=== PATIENT | male | born 1985 | race Caucasian/White ===

== ENCOUNTER 2017-05-07 16:54 | Emergency (ER) | payer SELFPAY ==
[2017-05-07 17:33] LABS: Hematocrit 45.4 % (42.0-52.0); Hemoglobin 15.9 gm/dL (13.5-18.0); Mean Cell Volume 87.3 fl (78-100); Mean Corpuscular Hemoglobin 30.6 pg (27-31); Mean Platelet Volume 10.3 fl (6.0-9.5); Neutrophil # 4.1 K/mm3 (1.3-6.0); Neutrophil % 43.3 % (42-75.0); Platelet Count 213 K/mm3 (150-450); Red Cell Distribution Width 12.4 % (11.5-14.0); White Blood Count 9.4 K/mm3 (4.0-10.5)
[2017-05-07 17:38] LABS: Urine Bilirubin Negative (NEGATIVE); Urine Blood Negative /ul (NEGATIVE); Urine Ketone Negative (NEGATIVE); Urine Nitrite Negative (NEGATIVE); Urine Protein Negative (NEGATIVE); Urine Specific Gravity 1.015 SP.GR. (1.005-1.030); Urine Urobilinogen Normal (NORMAL)
[2017-05-07 17:47] LABS: Albumin * 4.3 gm/dl (3.4-5.0); Anion Gap 11.3 mmol/L (6.8-13.8); BUN/Creatinine Ratio 10.7 (9.0-21.6); Bilirubin, Total 0.7 mg/dL (0.0-1.1); Ca. Corrected For Albumin 8.7 mg/dL (8.4-10.2); Calcium * 9.3 mg/dL (7.9-10.9); Carbon Dioxide 31.4 mmol/L (24-32.6); Potassium 3.7 mmol/L (3.4-4.6); Total Protein 8.5 gm/dL (6.2-8.2)
[2017-05-07 17:55] VITALS: BP 137/79
[2017-05-07 17:57] LABS: Urine Appearance Slightly Cloudy; Urine Color Yellow
[2017-05-07 17:58] LABS: Urine Bacteria TRACE; Urine RBC None Seen /hpf (0-5); Urine WBC None Seen /hpf (0-5)
--- NOTE | 2017-05-07 17:59 | ERNOTE ---
Abdominal HPI - General Chief Complaint: Abdominal Pain Time Seen by Provider: 05/07/17 17:11 Source: patient Exam Limitations: no limitations - Immun/Allergies/Home Medications Immunizatons: IMMUNIZATION HX Immunizations Up to Date Yes History of Influenza Vaccine No Hx Pneumococcal Vaccination No Allergies/Adverse Reactions: Allergies bupropion HCl [From Wellbutrin] Allergy (Verified 05/07/17 17:03) Home Medications: HOME MEDICATIONS Ibuprofen [Motrin] 800 mg PO TID PRN #15 tablet 05/07/17 [Last Taken Unknown] - History of Present Illness Narrative: Patient has had abdominal pain off and on for 7 days. He denies any fevers chills nausea vomiting diarrhea or constipation. He that he has no primary care doctor and has not taking any medication for this condition. Review of Systems - Review of Systems Constitutional: Present: no symptoms reported EYE: Present: no symptoms reported ENT: Present: no symptoms reported Respiratory: Present: no symptoms reported Cardiology: Present: no symptoms reported Gastrointestinal/Abdominal: Present: See HPI Genitourinary: Present: no symptoms reported Musculoskeletal: Present: no symptoms reported Skin: Present: no symptoms reported - Patient's Past Medical History Patient History - Medical: Depression Patient History - Cardiac/Respiratory: No pertinent hx Patient History - Cancer: No Hx of Cancer Patient History - Surgical Procedures: T & A, Other Patient History - Other: Other - Family History Grandfather-Paternal Family History - Cardiac/Respiratory: Hypertension Grandmother-Maternal Family History - Medical: Diabetes Type 2 - Social History Living Situations: home Abuse History: No History of abuse Psych History: Hx of Depression Alcohol Use: none Drug Use: none - Immunizations Immunizations Up to Date: Yes Hx Pneumococcal Vaccination: No History of Influenza Vaccine: No Physical Exam - Physical Exam General Appearance: Present: wd/wn, alert, no apparent distress Head Exam: Present: normal inspection, no evidence of injury Neck: Present: normal inspection Respiratory: Present: no respiratory distress, normal breath sounds, no accessory muscle use, chest nontender, lungs clear Cardiovascular/Chest: Present: regular rate, rhythm, no murmur, normal peripheral pulses Gastrointestinal/Abdominal: Present: normal bowel sounds, soft, other - some diffuse tenderness on palpation but no rebound is appreciated. Dr. Chris Tsang presented to the patient's bedside and did an exam is well exam is not consistent with acute appendicitis at this time. ED Progress - Results and Orders Patient's Lab Results:: I have reviewed the patient's lab results. - Vital Signs Patient's Vital Signs:: I have reviewed the patient's vital signs. Vital Signs: Vital Signs 05/07/17 05/07/17 17:00 17:24 Temperature 36.7 C Pulse Rate 92 89 Respiratory 12 Rate Blood Pressure 143/89 141/78 O2 Sat by Pulse 100 100 Oximetry - Progress/Reassessment Chief Complaint: Abdominal Pain Plan - Plan Plan: Patient's white count is not elevated he does not have any rebound tenderness and this examiner doubts in conjunction with Dr. Gary that this is an acute appendicitis. Departure Clinical Impression: Abdominal pain Qualifiers: Abdominal location: unspecified location Qualified Code(s): R10.9 - Unspecified abdominal pain - Departure Disposition: Home self-care Condition: Good Instructions: Abdominal Pain, Adult, [id number] Prescriptions: Ibuprofen [Motrin] 800 mg PO TID PRN #15 tablet PRN Reason: Pain
== END 2017-05-07 18:04 | disposition home or self-care (01) ==
LOC: ER 16:54
DX: R10.9 Unspecified abdominal pain (principal)

== ENCOUNTER 2018-02-05 09:42 | Observation (INO) ==
[~2018-02-05 09:42] MED LIST: BUPIVACAINE HCL/EPINEPHRINE 50 ML VIAL IJ PRN; CEFOXITIN SODIUM 2 GM in DEXTROSE 5 % IN WATER 100 ML IV PRN; RINGER'S SOLUTION,LACTATED 1,000 ML IV PRN
[2018-02-05] MEDS ORDERED: DIATRIZOATE MEGLUMINE, SODIUM 30 ML BTL PO ONE (10:29)
[2018-02-05 10:34] LABS: Hematocrit 47.2 % (42.0-52.0); Hemoglobin 16.7 gm/dL (13.5-18.0); Mean Cell Volume 89.2 fl (78-100); Mean Corpuscular Hemoglobin 31.6 pg (27-31); Mean Corpuscular Hgb Conc 35.4 g/dl (32-36); Mean Platelet Volume 10.4 fl (8-11.3); Neutrophil # 7.9 K/mm3 (1.3-6.0); Neutrophil % 64.5 % (42-75.0); Platelet Count 226 K/mm3 (150-450); Red Blood Count 5.29 M/mm3 (4.7-6.0); White Blood Count 12.2 K/mm3 (4.0-10.5)
--- NOTE | 2018-02-05 10:34 | ERNOTE ---
ER Male HPI Date of Service: 02/05/18 Stated Complaint: ABD GROIN PAIN ER Male: testicular pain Time Seen by Provider: 02/05/18 10:08 Source: patient Exam Limitations: no limitations Immunizations: IMMUNIZATION HX Immunizations Up to Date Yes History of Influenza Vaccine No Hx Pneumococcal Vaccination No Allergies/Adverse Reactions: Allergies bupropion HCl [From Wellbutrin] Allergy (Verified 05/07/17 17:03) Home Medications: HOME MEDICATIONS Ibuprofen [Motrin] 800 mg PO TID PRN #15 tablet 05/07/17 [Last Taken Unknown] - History of Present Illness Narrative: 33-year-old male presents to the emergency room for right testicular pain and right lower quadrant pain. Patient states that he has had epididymitis before and this feels very similar. Patient states that his lower abdominal pain is new. Patient states that he normally has firm bowel movements and has not had one since Sunday. Date (Duration): 02/05/18 Timing: Present: constant, getting worse Quality: Present: moderate, sharpness Onset Location: Present: RLQ, scrotal Radiation: Present: RLQ, scrotal Activities at Onset: Present: none Prior Abdominal Problems: Present: other - hx of epididimitis Sexual [place] History: Present: not active Associated Symptoms: Present: abdominal pain. Absent: fever/chills, diaphoresis , nausea, vomiting, dysuria, urinary frequency, loss of bladder control, low back pain Review of Systems - Review of Systems Constitutional: Present: See HPI, decreased activity level EYE: Present: no symptoms reported ENT: Present: no symptoms reported Respiratory: Present: no symptoms reported Cardiology: Present: no symptoms reported Gastrointestinal/Abdominal: Present: See HPI Genitourinary: Present: See HPI Musculoskeletal: Present: no symptoms reported Skin: Present: no symptoms reported Neurological: Present: no symptoms reported Endocrine: Present: no symptoms reported Hematologic/Lymphatic: Present: no symptoms reported Psych: Present: no symptoms reported All Other Systems: All systems neg except as marked Medical History (Last Reviewed 02/05/18 @ 14:08 by Yolette Ellis RN) Epididymitis History of tonsillectomy Family History: Family History Other not contributory Social History: Preferred Language Hebrew Abuse History No History of abuse Psych History Hx of Depression Physical Exam - Physical Exam Narrative: Right testicle is tender. Epididymis is swollen and tender. Patient has right lower quadrant tenderness. General Appearance: Present: wd/wn, alert, no apparent distress Head Exam: Present: normal inspection, no evidence of injury Eye Exam: Normal inspection: bilateral, PERRL: bilateral Ears, Nose, Throat: Present: normal ENT inspection, normal pharynx Neck: Present: normal inspection, nontender Respiratory: Present: no respiratory distress, normal breath sounds, no accessory muscle use, chest nontender, lungs clear Cardiovascular/Chest: Present: regular rate, rhythm, no murmur, normal peripheral pulses Gastrointestinal/Abdominal: Present: normal bowel sounds, tenderness Male Genitals Exam: Present: epididymal tenderness, testicular tenderness (R) Back Exam: Present: normal inspection, normal range of motion, no CVA tenderness , no vertebral tenderness Extremity Exam: Present: normal inspection, non-tender, normal range of motion, no edema Neurological Exam: Present: alert, oriented, normal mood/affect, no motor/ sensory deficits Skin Exam: Present: normal color, warm/dry Lymphatic Exam: Present: no adenopathy ED Progress - Results and Orders Patient's Lab Results:: I have reviewed the patient's lab results. - Vital Signs Patient's Vital Signs:: I have reviewed the patient's vital signs. Vital Signs: Vital Signs 02/05/18 10:08 Temperature 37.2 C Pulse Rate 109 H Respiratory Rate 12 Blood Pressure 125/72 O2 Sat by Pulse Oximetry 98 - CT/Ultrasound CT/Ultrasound Narrative: HISTORY: Right lower quadrant pain for four days. Severe this a.m. ENHANCED CT SCAN OF THE ABDOMEN AND ENHANCED CT SCAN OF THE PELVIS. COMPARISON: NONE Technique: Initially, multiple axial images were obtained through the abdomen during the portal venous phase of enhancement. Delayed images were obtained through the abdomen and pelvis. Coronal reconstructions were obtained. Oral contrast was utilized. Individualized dose optimization technique was used for the performed procedure including automated exposure control, adjustment of the mA and/or kV according to patient size and/or the iterative reconstruction technique. Findings: The visualized lung bases are clear. The liver is homogeneous in appearance and I do not see evidence for a focal defect or intrahepatic duct dilatation. A gallbladder is in place and I do not see evidence for calcified gallstones. The spleen is of normal size and is homogenous in appearance. The adrenal glands are within normal limits. The pancreas is with in normal limits. The abdominal aorta is of normal caliber. I do not see evidence for retroperitoneal adenopathy on this study. The right and left renal parenchyma is normal in appearance. The kidneys demonstrate bilateral symmetric excretion of contrast and the ureters are of normal caliber on delayed images. The stomach is partially distended and is grossly normal appearance. The small bowel is of normal caliber. There is inflammation/phlegmon inferior to the cecum. This is most consistent with a dilated inflamed appendix with surrounding inflammation. There is a small calcified density, most consistent with small appendicolith. These findings are most concerning for acute appendicitis. There is mild extrinsic compression upon the terminal ileum and cecum from the phlegmon. The colon is suboptimally evaluated, but I'm not convinced of a definable colon lesion. CT scan of pelvis: The urinary bladder is normal in appearance. The prostate is not enlarged. There is a tiny amount of free fluid in the pelvis. I do not see evidence for adenopathy in the pelvis. IMPRESSION: 1. MARKEDLY DISTENDED APPENDIX WITH SURROUNDING INFLAMMATION, CONSISTENT WITH ACUTE APPENDICITIS. 2. SMALL AMOUNT OF FREE FLUID IN THE PELVIS. Electronically signed by Samy Dominique M.D.. Technique: Ultrasound grayscale images were obtained of the right and left scrotum. The testicles were evaluated using color-flow and Doppler technique. Findings: Right side: The right testicle measures 4.1 x 2.7 x 2.5 cm. There is irregular linear lucency involving the inferior aspect of the testicle with associated hypoechoic area. There is vascular flow identified within the surrounding parenchyma with minimal flow identified within the hypoechoic area. The epididymal head measures 1.0 x 1.3 x 0.7 cm. The abdominal head and epididymis appear mildly hypoechoic and does appear to be increased vascular flow. There is a moderate hydrocele identified within the right scrotum with some internal echoes. Left side: The left testicle measures 3.8 x 2.1 x 2.2 cm. The testicular parenchyma is homogeneous in appearance and I'm not convinced of definable lesion. The epididymal head measures up to 1.0 cm. There is a 2 mm epididymal cyst. The visualized epididymal body appears normal. There is moderate fluid within the left scrotum. IMPRESSION: 1. IRREGULAR LINEAR APPEARANCE TO THE INFERIOR ASPECT OF THE TESTICLE WITH ASSOCIATED FOCAL MILDLY HYPOECHOIC REGION IN THE TESTICLE. THE APPEARANCE SUGGESTS POSTTRAUMATIC OR INFECTIOUS ETIOLOGIES. TUMOR IS CONSIDERED LESS LIKELY. UROLOGY EVALUATION IS RECOMMENDED. 2. MILD PROMINENCE OF THE RIGHT EPIDIDYMIS WITH INCREASED VASCULAR FLOW/ HYPEREMIA. 3. MODERATE RIGHT SIDED HYDROCELE 4. UNREMARKABLE LEFT TESTICLE AND EPIDIDYMIS. 5. MODERATE LEFT SIDED HYDROCELE. Electronically signed by Samy Dominique M.D - Progress/Reassessment Chief Complaint: Genitourinary Problem Progress:: Unchanged Plan - Plan Plan: 1312 Dr. Pham notified of CT results. Patient given a dose of Rocephin to start treatment for his epididymitis. Patient is to be taken to the OR for his appendicitis. 1430 patient left to go to the OR. Departure Clinical Impression: Acute appendicitis Qualifiers: Acute appendicitis type: unspecified acute appendicitis type Qualified Code(s) : K35.80 - Unspecified acute appendicitis - Departure Disposition: Still a patient Condition: Stable
[2018-02-05 10:45] LABS: Albumin * 4.2 gm/dl (3.4-5.0); BUN/Creatinine Ratio 9.4 (9.0-21.6); Bilirubin, Total 0.9 mg/dL (0.0-1.1); Ca. Corrected For Albumin 8.9 mg/dL (8.4-10.2); Calcium * 9.4 mg/dL (7.9-10.9); Total Protein 8.4 gm/dL (6.2-8.2)
[2018-02-05 11:40] LABS: Urine Bilirubin Negative (NEGATIVE); Urine Blood Negative /ul (NEGATIVE); Urine Ketone Negative (NEGATIVE); Urine Nitrite Negative (NEGATIVE); Urine Protein Negative (NEGATIVE); Urine Specific Gravity <=1.005 SP.GR. (1.005-1.030); Urine Urobilinogen Normal (NORMAL)
[2018-02-05 12:00] LABS: Cocaine Ur Negative (NEGATIVE); Urine Barbiturate Negative (NEGATIVE); Urine Benzodiazepines Negative (NEGATIVE); Urine Opiates Negative (NEGATIVE); Urine PCP Negative (NEGATIVE); Urine THC Negative (NEGATIVE)
[2018-02-05 12:04] LABS: Urine Appearance Clear (CLEAR); Urine Bacteria None Seen; Urine Color Yellow; Urine RBC None Seen /hpf (0-5); Urine WBC TRACE /hpf (0-5)
--- NOTE | 2018-02-05 14:21 | HP ---
Chief Complaint - Chief Complaint Date of Service: 02/05/18 Time of Service: 14:00 Chief Complaint: appendicitis History of Present Illness: Started with right testicular pain on 02/01/18. He has had epididymitis before. Then he developed abdominal pain on 02/02/18. Pain continued but he went to work. Then today the pain became severe. He has eaten a pop tart at 10AM, and actually says he is hungry. He has elevated WBC with RLQ pain and tenderness and CT scan shows phlegmon/appendicolith RLQ. U/S of scrotum also shows epididymitis. Medical History (Last Updated 02/05/18 @ 14:07 by Junaid Pham MD) Epididymitis History of tonsillectomy Family History: Family History (Last Updated 02/05/18 @ 14:20 by Junaid Pham MD) Other not contributory Social History: Preferred Language [place] Abuse History No History of abuse Psych History Hx of Depression Review Of Systems (GEN) - Review of Systems Generalized/Overall Review: Present: Malaise. Absent: Chills, Fever EENTM: Present: No Symptoms Reported Respiratory: Present: No Symptoms Reported Cardiac: Present: No Symptoms Reported Abdominal: Present: Abdominal Pain Genitourinary: Present: Other - right testicular pain/tenderness. Absent: Burning, Urgency, Frequency Musculoskeletal: Present: No Symptoms Reported Neurological: Present: No Symptoms Reported Skin: Present: Other - small bumps left wrist watchband Endocrine: Present: No Symptoms Reported Misc: All systems neg except as marked Immunizations: IMMUNIZATION HX Immunizations Up to Date Yes History of Influenza Vaccine No Hx Pneumococcal Vaccination No Allergies/Adverse Reactions: Allergies Allergy/AdvReac Type Severity Reaction Status Date / Time bupropion HCl Allergy Verified 05/07/17 17:03 [From Wellbutrin] Home Medications: HOME MEDICATIONS Ibuprofen [Motrin] 800 mg PO TID PRN #15 tablet 05/07/17 [Last Taken Unknown] Exam - Exam Vital Signs: Vital Signs - Last Taken Temp 37.2 C 02/05/18 10:08 Pulse 67 02/05/18 12:13 Resp 14 02/05/18 12:13 BP 149/91 H 02/05/18 12:13 Pulse Ox 96 02/05/18 12:13 Constitutional: Present: Alert, Oriented x3, Cooperative, Well developed, Well nourished, Mild distress ENT Exam: Present: normal ENT inspection, other - Malampati 3 airway Eye Exam: bilateral eye: normal inspection Neck: Present: full range of motion, normal inspection Back Exam: Present: normal inspection, no CVA tenderness Respiratory: Present: lungs clear, no respiratory distress Cardiovascular/Chest: Present: normal peripheral pulses, regular rate, rhythm, no murmur Abdomen: Present: other - fullness RLQ with direct and rebound tenderness /Rectal: Present: Exam deferred, Other - ERP reports right epididymal tenderness Extremity: Present: normal range of motion, normal inspection, no pedal edema, no calf tenderness Skin Exam: Present: normal color 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 nml as tested Appearance: Present: appropriate appearance, appropriate insight, no memory impairment Eye contact: Present: cooperative, good eye contact Thoughts: Present: normal thought pattern Diagnostic Studies: Abnormal Lab Results 02/05/18 02/05/18 02/05/18 Range/Units 10:25 10:25 11:32 WBC 12.2 H (4.0-10.5) K/mm3 MCH 31.6 H (27-31) pg Neutrophils # 7.9 H (1.3-6.0) K/mm3 Random Glucose 117 H (70-110) mg/dL Total Protein 8.4 H (6.2-8.2) gm/dL Urine Glucose (UA) 100 H (NEGATIVE) mg/dL Laboratory Results WBC 12.2 K/mm3 (4.0-10.5) H 02/05/18 10:25 RBC 5.29 M/mm3 (4.7-6.0) 02/05/18 10:25 Hgb 16.7 gm/dL (13.5-18.0) 02/05/18 10:25 Hct 47.2 % (42.0-52.0) 02/05/18 10:25 MCV 89.2 fl (78-100) 02/05/18 10:25 MCH 31.6 pg (27-31) H 02/05/18 10:25 MCHC 35.4 g/dl (32-36) 02/05/18 10:25 RDW 12.0 % (11.5-14.0) 02/05/18 10:25 Plt Count 226 K/mm3 (150-450) 02/05/18 10:25 MPV 10.4 fl (8-11.3) 02/05/18 10:25 Immature Gran % (Auto) 0.20 % (0.001-0.429) 02/05/18 10:25 Immature Gran # (Auto) 0.03 K/mm3 (0.000-0.0310) 02/05/18 10:25 Neutrophils % 64.5 % (42-75.0) 02/05/18 10:25 Lymphocytes % 26.7 % (20-51) 02/05/18 10:25 Monocytes % 6.1 % (0.0-9) 02/05/18 10:25 Eosinophils % 2.1 % (0.0-3.0) 02/05/18 10:25 Basophils % 0.4 % (0.0-1.0) 02/05/18 10:25 Nucleated RBC % 0.0 k/mm3 (0-1) 02/05/18 10:25 Neutrophils # 7.9 K/mm3 (1.3-6.0) H 02/05/18 10:25 Lymphocytes # 3.26 k/mm3 (1.5-3.5) 02/05/18 10:25 Monocytes # 0.8 k/mm3 (0.0-1.0) 02/05/18 10:25 Eosinophils # 0.3 k/mm3 (0.0-0.7) 02/05/18 10:25 Absolute Basophils 0.1 k/mm3 (0.0-0.1) 02/05/18 10:25 Sodium 139 mmol/L (132-142) 02/05/18 10:25 Plasma Sodium 139 mmol/L (130-142) 02/05/18 10:25 Potassium 4.0 mmol/L (3.4-4.6) 02/05/18 10:25 Chloride 100 mmol/L (97-106) 02/05/18 10:25 Carbon Dioxide 30.0 mmol/L (24-32.6) 02/05/18 10:25 Anion Gap 13.0 mmol/L (6.8-13.8) 02/05/18 10:25 BUN 9 mg/dL (6-23) 02/05/18 10:25 Creatinine 0.96 mg/dL (0.4-1.4) 02/05/18 10:25 Est GFR (Non-Af Amer) 96 mL/min (60-130) 02/05/18 10:25 BUN/Creatinine Ratio 9.4 (9.0-21.6) 02/05/18 10:25 Random Glucose 117 mg/dL (70-110) H 02/05/18 10:25 Calcium 9.4 mg/dL (7.9-10.9) 02/05/18 10:25 Calcium Adj for Albumin 8.9 mg/dL (8.4-10.2) 02/05/18 10:25 Total Bilirubin 0.9 mg/dL (0.0-1.1) 02/05/18 10:25 AST 14 U/L (0-48) 02/05/18 10:25 ALT 31 U/L (19-67) 02/05/18 10:25 Alkaline Phosphatase 122 U/L (50-170) 02/05/18 10:25 Total Protein 8.4 gm/dL (6.2-8.2) H 02/05/18 10:25 Albumin 4.2 gm/dl (3.4-5.0) 02/05/18 10:25 Urine Color Yellow 02/05/18 11:32 Urine Appearance Clear (CLEAR) 02/05/18 11:32 Urine pH 7.0 pH (5.0-7.0) 02/05/18 11:32 Ur Specific [place] <=1.005 SP.GR. (1.005-1.030) 02/05/18 11:32 Urine Protein Negative mg/dL (NEGATIVE) 02/05/18 11:32 Urine Glucose (UA) 100 mg/dL (NEGATIVE) H 02/05/18 11:32 Urine Ketones Negative mg/dL (NEGATIVE) 02/05/18 11:32 Urine Blood Negative /ul (NEGATIVE) 02/05/18 11:32 Urine Nitrate Negative (NEGATIVE) 02/05/18 11:32 Urine Bilirubin Negative mg/dl (NEGATIVE) 02/05/18 11:32 Urine Urobilinogen Normal EU/dl (NORMAL) 02/05/18 11:32 Ur Leukocyte Esterase Negative /ul (NEGATIVE) 02/05/18 11:32 Urine RBC None seen /hpf (0-5) 02/05/18 11:32 Urine WBC Trace /hpf (0-5) 02/05/18 11:32 Ur Epithelial Cells Trace /hpf (0-5) 02/05/18 11:32 Urine Bacteria None seen (NONE) 02/05/18 11:32 Urine Culture Comments No culture indicated 02/05/18 11:32 Urine Opiates Screen Negative (NEGATIVE) 02/05/18 11:32 Barbiturate Screen Negative (NEGATIVE) 02/05/18 11:32 Ur Phencyclidine Scrn Negative (NEGATIVE) 02/05/18 11:32 Urine Amphetamine Negative (NEGATIVE) 02/05/18 11:32 U Benzodiazepines Scrn Negative (NEGATIVE) 02/05/18 11:32 Urine Cocaine Screen Negative (NEGATIVE) 02/05/18 11:32 Urine Marijuana (THC) Negative (NEGATIVE) 02/05/18 11:32 CT shows phlegmon RLQ with appendicolith, U/S shows right epididymitis Assessment/Plan - Assessment/Plan (1) Acute appendicitis Assessment: Explained appendicitis and appendectomy, including laparoscopic and open approach. Risks and possible complications explained along with expected operative/hospital and post-opcoure. After an interactive discussion, his questions were answered to his apparent satisfaction and informed consent obtained for appendectomy. Problem: Acute Qualifiers: Acute appendicitis type: unspecified acute appendicitis type Qualified Code (s): K35.80 - Unspecified acute appendicitis (2) Testicle tenderness Assessment: Epididymitis. Will start treatment with IV Rochephin and then plan doxycycline 100mg po for 10 days Problem: Acute
--- NOTE | 2018-02-05 14:28 | ANES ---
Anesthesia Pre Procedure Eval Vitals/Labs: Last Vital Signs Temp 37.2 C 02/05/18 10:08 Pulse 67 02/05/18 12:13 Resp 14 02/05/18 12:13 BP 149/91 H 02/05/18 12:13 Pulse Ox 96 02/05/18 12:13 HOME MEDICATIONS Ibuprofen [Motrin] 800 mg PO TID PRN #15 tablet 05/07/17 [Last Taken Unknown] Allergies/Adverse Reactions: Allergies Allergy/AdvReac Type Severity Reaction Status Date / Time bupropion HCl Allergy Verified 05/07/17 17:03 [From Wellbutrin] - Planned Procedure Planned Procedure: APPY Medication List Reviewed:: Yes Allergies Verified: Yes Medical History (Last Reviewed 02/05/18 @ 14:27 by Ismael Menjivar CRNA) Epididymitis History of tonsillectomy Family History (Last Updated 02/05/18 @ 14:20 by Junaid Pham MD) Other not contributory - Family Anesthesia History Family History:: no untoward family reactions to anesthesia, no familial bleeding tendencies, no family history of clotting disorders, no family history of premature - Airway/Neck/Teeth Teeth Condition: Missing Teeth Mallampatti Score: 1 Thyromental (T-M) distance: > 6 cm Mandibulo Hyoid distance: > 3 cm - Respiratory Respiratory: lungs clear Smoking Status: Current every day smoker - E-tobbacco Discussed smoking cessation including day of surgery: Yes Sleep Apnea currently treated: No Sleep Apnea by current assessment: No Discussed Risks/Treatment of VIANCA: No - Cardiovascular Patient History - Cardiac/Respiratory: No pertinent hx Tolerates Activity: Good Heart Sounds: S1 & S2, Regular - Anesthesia Assessment and Plan ASA Class: PS, II, E Anesthesia Type Plan: General ET Planned difficult intubation/equipment available: No
[2018-02-05] MEDS ORDERED: BUPIVACAINE HCL/EPINEPHRINE/PF 30 ML VIAL IJ ONE (15:09)
[2018-02-05] MEDS ORDERED: NALOXONE HCL 0.4 MG/ML VIAL IV PRN (17:06)
[2018-02-05] MEDS ORDERED: HYDROmorphone HCL 2 MG/ML VIAL IV PRN (17:06)
[2018-02-05] MEDS ORDERED: diphenhydrAMINE HCL 50 MG/ML VIAL IV PRN (17:06)
[2018-02-05] MEDS ORDERED: PROMETHAZINE HCL 12.5 MG in DEXTROSE 5 % IN WATER 50 ML IV PRN ×2 (17:06)
[2018-02-05] MEDS ORDERED: RINGER'S SOLUTION,LACTATED 1,000 ML IV PRN (17:09)
[2018-02-05] MEDS ORDERED: ONDANSETRON HCL/PF 2 MG/ML VIAL IV PRN (17:09)
--- NOTE | 2018-02-05 17:09 | ANES ---
Post Anesthesia Discharge - Transfer of Care Transfer of Care handoff given to nurse: Yes - Discharge from PACU Discharge from PACU when meets criteria: Yes - Discharge to ASU Discharge to ASU-no complications/pt stable: Yes
[2018-02-05] MEDS ORDERED: MORPHINE SULFATE 2 MG/ML DISP.SYRIN IV PRN (17:16)
[2018-02-05] MEDS ORDERED: IBUPROFEN 400 MG TABLET PO PRN (17:19)
--- NOTE | 2018-02-05 17:21 | ANES ---
Post Anesthesia Assessment - Vital Signs Vitals: Last Vital Signs Temp 36.6 C 02/05/18 17:15 Pulse 63 02/05/18 17:15 Resp 20 02/05/18 17:15 BP 117/59 02/05/18 17:15 Pulse Ox 100 02/05/18 17:15 Airway Patency: Normal - Mental Status Level Of Consciousness: Awake - Pain Level Pain Score: 7 - N/V Assessment Nausea/Vomiting Presence: Nauseated Dehydration:: Yes
--- NOTE | 2018-02-05 17:52 | OR ---
Operative Report - Dictated Report Narrative: Date of operation 02/05/2018 Preoperative diagnosis: Acute appendicitis Postoperative diagnosis: Advanced acute appendicitis with localized peritonitis Operation: Laparoscopic appendectomy Surgeon: VINITA Pham MD Anesthesia: Gen. latoya Menjivar CRNA Indications for procedure: The patient is a 33-year-old male who began with abdominal pain on 02/02/2018. He also has right testicular pain which began sometime before this. The pain in his abdomen has increased and intensified and he presented to the emergency room today for evaluation. He was found to have elevated WBC with right lower quadrant pain and tenderness as well as right testicular tenderness. Ultrasound of the right testicle shows epididymitis. CT scan of the abdomen and pelvis reveals acute appendicitis with an appendicolith and apparent phlegmon. The patient was given IV Rocephin in the emergency room to begin treatment for his epididymitis and is brought to the OR for appendectomy Findings: Advanced acute appendicitis with localized peritonitis (pathology pending) Narrative of procedure: The patient was identified preoperatively, and prior to the administration of anesthetic a multidisciplinary timeout was observed. The patient was placed supine, SCDs were applied, and 2 g of intravenous Mefoxin administered. General endotracheal anesthetic was administered. The patient's abdomen was prepped with Betadine solution, and a generous operating field outlined with 4 sterile towels. The remainder the patient was covered with a sterile disposable drape. A transverse infraumbilical skin incision was made, and dissection was carried along the umbilical stalk until the fascia of the linea alba was encountered. This was incised. The peritoneum was elevated and incised to allow entry into the abdomen under direct vision. A Hussan cannula was placed and the abdomen insufflated with CO2. The laparoscopic camera was introduced and the abdomen briefly explored. Those portions of the liver, gallbladder, stomach, stool-filled colon and small intestine visualized appeared normal. The appendix was not immediately visible. There was no fluid in the pelvis. Next under direct vision, 2 additional working ports were inserted through separate skin incisions, one in the suprapubic area one in the left lower quadrant. The apex of the cecum was retracted medially revealing the tip of an enlarged and inflamed appendix. Initially the tip of the appendix was gradually developed proximally by blunt dissection. Next the lateral peritoneal reflection of the cecum was developed to allow medial retraction and further exposure of the lateral aspect of the inflamed appendix. Gradually the appendix was traced back to the appendiceal base. A window was created adjacent to the appendiceal base which was then transected with a laparoscopic JOSE J stapling device. The stump of the appendix was seen to be hemostatic and gas and liquid tight. The mesoappendix was divided with an application of a JOSE J laparoscopic stapling device. It was seen to be hemostatic. The appendix was placed in an Endobag and parked in the right lower quadrant. The lateral abdomen and pelvis were then irrigated with saline and suction clean. Hemostasis was assured. The appendiceal stump and mesoappendix were again confirmed to be secure. The small working ports were then withdrawn under direct vision to ensure entry site hemostasis. The appendix was removed in conjunction with the Hussan cannula. The pneumoperitoneum was allowed to escape, and after receiving a correct sponge needle and instrument count attention was turned to closing the abdomen. The fascia and peritoneum at the umbilicus were approximated with interrupted sutures of #1 Vicryl. Subcuticular space at the umbilicus was obliterated with interrupted sutures of chromic. Skin incisions were approximated with interrupted vertical mattress sutures of 4-0 nylon. The operative sites were washed and dried. Dressings of Bactroban ointment and large Band-Aids were applied to the small port sites. The umbilical incision was dressed with Bactroban ointment, 2 x 2, large Band-Aid, and Medipore tape. The operative procedure was terminated at this point. There was no measurable blood loss. 0.5% Marcaine with epinephrine was used for local anesthetic infiltration area the appendix was submitted to pathology. The patient tolerated the anesthetic and procedure well without complication and was transferred to the recovery room awake, extubated, and in stable condition. Reviewed and electronically signed
[2018-02-05] MEDS ORDERED: HYDROmorphone HCL 2 MG TABLET PO PRN (20:58)
[2018-02-05] MEDS: CEFOXITIN SODIUM 1 GM in DEXTROSE 5 % IN WATER 100 ML IV SCH ×2 (21:11)
[2018-02-06] MEDS: CEFOXITIN SODIUM 1 GM in DEXTROSE 5 % IN WATER 100 ML IV SCH ×6 (02:25→15:25)
[2018-02-06] MEDS ORDERED: DOXYCYCLINE HYCLATE 100 MG TABLET PO SCH (09:00)
--- NOTE | 2018-02-06 18:31 | DS ---
(1) Acute appendicitis Problem: Acute Qualifiers: Acute appendicitis type: unspecified acute appendicitis type Qualified Code (s): K35.80 - Unspecified acute appendicitis (2) Testicle tenderness Problem: Acute Procedures Performed: see notes below - laparoscopic appendectomy Results and Findings: Lab Pending Results 02/05/18 02/05/18 02/05/18 10:25 10:25 11:32 WBC 12.2 H RBC 5.29 Hgb 16.7 Hct 47.2 MCV 89.2 MCH 31.6 H MCHC 35.4 RDW 12.0 Plt Count 226 MPV 10.4 Immature Gran % (Auto) 0.20 Immature Gran # (Auto) 0.03 Neutrophils % 64.5 Lymphocytes % 26.7 Monocytes % 6.1 Eosinophils % 2.1 Basophils % 0.4 Nucleated RBC % 0.0 Neutrophils # 7.9 H Lymphocytes # 3.26 Monocytes # 0.8 Eosinophils # 0.3 Absolute Basophils 0.1 Sodium 139 Plasma Sodium 139 Potassium 4.0 Chloride 100 Carbon Dioxide 30.0 Anion Gap 13.0 BUN 9 Creatinine 0.96 Est GFR (Non-Af Amer) 96 BUN/Creatinine Ratio 9.4 Random Glucose 117 H Calcium 9.4 Calcium Adj for Albumin 8.9 Total Bilirubin 0.9 AST 14 ALT 31 Alkaline Phosphatase 122 Total Protein 8.4 H Albumin 4.2 Urine Color Yellow Urine Appearance Clear Urine pH 7.0 Ur Specific [place] <=1.005 Urine Protein Negative Urine Glucose (UA) 100 H Urine Ketones Negative Urine Blood Negative Urine Nitrate Negative Urine Bilirubin Negative Urine Urobilinogen Normal Ur Leukocyte Esterase Negative Urine RBC None seen Urine WBC Trace Ur Epithelial Cells Trace Urine Bacteria None seen Urine Culture Comments No culture indicated Urine Opiates Screen Barbiturate Screen Ur Phencyclidine Scrn Urine Amphetamine U Benzodiazepines Scrn Urine Cocaine Screen Urine Marijuana (THC) Pathology Specimen Blood Type Antibody Screen 02/05/18 02/05/18 02/05/18 11:32 13:30 17:00 WBC RBC Hgb Hct MCV MCH MCHC RDW Plt Count MPV Immature Gran % (Auto) Immature Gran # (Auto) Neutrophils % Lymphocytes % Monocytes % Eosinophils % Basophils % Nucleated RBC % Neutrophils # Lymphocytes # Monocytes # Eosinophils # Absolute Basophils Sodium Plasma Sodium Potassium Chloride Carbon Dioxide Anion Gap BUN Creatinine Est GFR (Non-Af Amer) BUN/Creatinine Ratio Random Glucose Calcium Calcium Adj for Albumin Total Bilirubin AST ALT Alkaline Phosphatase Total Protein Albumin Urine Color Urine Appearance Urine pH Ur Specific [place] Urine Protein Urine Glucose (UA) Urine Ketones Urine Blood Urine Nitrate Urine Bilirubin Urine Urobilinogen Ur Leukocyte Esterase Urine RBC Urine WBC Ur Epithelial Cells Urine Bacteria Urine Culture Comments Urine Opiates Screen Negative Barbiturate Screen Negative Ur Phencyclidine Scrn Negative Urine Amphetamine Negative U Benzodiazepines Scrn Negative Urine Cocaine Screen Negative Urine Marijuana (THC) Negative Pathology Specimen Spec to path Blood Type A Positive Antibody Screen Negative Discharge Location: Home Disposition: Home self-care Condition: Good Discharge Activity: No Lifting Discharge Diet: General/regular food Problem Oriented Discharge Instructions to Patient/Family: Epididymitis, Laparoscopic Appendectomy, Adult, Care After, [id number] Complete Home Medications List: Complete Home Medication List: Ibuprofen [Motrin] 800 mg PO TID PRN #15 tablet 05/07/17
[2018-02-06 19:12] VITALS: BP 141/72
== END 2018-02-06 19:30 | disposition home or self-care (01) ==
LOC: ER 09:42 → MS 09:42
PROVIDERS: ADMIT Surgery; ATTEND Surgery
DX: N45.1 Epididymitis; K35.3 Acute appendicitis with localized peritonitis; Z68.23 Body mass index [BMI] 23.0-23.9, adult
CPT/HCPCS: 36415; 74177; 76870; 80053; 80307; 81001; 85025; 86850; 86900; 87081; 88304; G0378; G0479; J2405